=== PATIENT | female | born 1995 | race Two or more races ===

== ENCOUNTER 2019-09-08 12:31 | Emergency (ER) | payer OTHER ==
[~2019-09-08] VITALS: Ht 154.9 cm; Wt 57.2 kg
[2019-09-08] MEDS ORDERED: PRENA1 TRUE CO1 EACH (13:07)
== END 2019-09-08 18:41 | disposition home or self-care (01) ==
LOC: ER 12:31
DX: O26.891 Other specified pregnancy related conditions, first trimester (principal); N89.8 Other specified noninflammatory disorders of vagina

== ENCOUNTER 2020-03-10 09:33 | Inpatient (IN) | payer OTHER ==
[~2020-03-10] VITALS: Ht 154.9 cm; Wt 3.2 kg
[~2020-03-10 09:33] MED LIST: PRENA1 TRUE CO1 EACH
[2020-03-17] MEDS ORDERED: PREPLUS CA-FE1 EACH PO (14:41)
[2020-03-17] MEDS ORDERED: NAPR500T14 PO (14:41)
== END 2020-03-17 15:40 | disposition home or self-care (01) | DRG 785 ==
LOC: O/R 03-14 05:00 → OB/GYN 03-14 07:00
PROVIDERS: ADMIT Specialist; ATTEND Specialist
PROC: 0UL70ZZ Occlusion of Bilateral Fallopian Tubes, Open Approach (ICD-10-PCS; 2020-03-14)
PROC: 4A1HXCZ Monitoring of Products of Conception, Cardiac Rate, External Approach (ICD-10-PCS; 2020-03-14)
PROC: 10D00Z1 Extraction of Products of Conception, Low, Open Approach (ICD-10-PCS; principal; 2020-03-14 07:00)
DX: O82 Encounter for cesarean delivery without indication (principal); Z3A.38 38 weeks gestation of pregnancy; Z37.0 Single live birth; Z30.2 Encounter for sterilization